=== PATIENT | female | born 1980 | race Caucasian/White ===

== ENCOUNTER 2017-08-10 00:31 | Emergency (ER) | payer BC ==
[~2017-08-10] VITALS: Ht 167.6 cm; Wt 77.1 kg
[2017-08-10 00:35] VITALS: BP_SYST 119
[2017-08-10] MEDS ORDERED: methylPREDNISolone SOD SUCC/PF 62.5 MG/ML VIAL IM ONE (00:45)
[2017-08-10 01:06] VITALS: BP_SYST 106
== END 2017-08-10 01:06 | disposition home or self-care (01) ==
LOC: SED 00:31
DX: L50.9 Urticaria, unspecified (principal); R03.0 Elevated blood-pressure reading, without diagnosis of hypertension
CPT/HCPCS: 96372; 99283; J2930

== ENCOUNTER 2018-05-30 07:18 | Emergency (ER) | payer BC ==
[~2018-05-30] VITALS: Ht 167.6 cm; Wt 78.9 kg
[2018-05-30 07:21] VITALS: BP_SYST 119
[2018-05-30] MEDS ORDERED: KETOROLAC TROMETHAMINE 30 MG VIAL IM ONE (08:45)
[2018-05-30 09:00] VITALS: BP_SYST 125
== END 2018-05-30 09:00 | disposition home or self-care (01) ==
LOC: SED 07:18
DX: S43.401A Unspecified sprain of right shoulder joint, initial encounter (principal); X50.9XXA Other and unspecified overexertion or strenuous movements or postures, initial encounter; Y93.89 Activity, other specified; Y92.69 Other specified industrial and construction area as the place of occurrence of the external cause; Y99.8 Other external cause status
CPT/HCPCS: 73060; 93971; 96372; 99284; J1885